=== PATIENT | female | born 1995 | race Hispanic/Latino ===

== ENCOUNTER 2023-10-05 21:45 | Emergency (ER) | payer SELFPAY ==
[2023-10-05] MEDS ORDERED: Acetaminophen 500 MG TAB ONE (22:11)
== END 2023-10-05 22:17 | disposition home or self-care (01) ==
LOC: CSHERS 21:45
DX: K02.9 Dental caries, unspecified (principal)
CPT/HCPCS: 99282

== ENCOUNTER 2025-03-12 18:00 | Inpatient (IN) | payer OTHER ==
[2025-03-12 18:33] VITALS: BMI 35.5
[2025-03-12] MEDS ORDERED: Tranexamic Acid 1,000 MG/10 ML VIAL IVP PRN (19:30)
[2025-03-12] MEDS ORDERED: Oxytocin 30 units/NS 500 ML 500 ML IV SCH ×3 (19:30)
[2025-03-12] MEDS ORDERED: Carboprost 250 MCG/ML AMP IM PRN (19:30)
[2025-03-12] MEDS ORDERED: Diphenoxylate HCl/Atropine Tablet PO PRN (19:30)
[2025-03-12] MEDS ORDERED: hydrALAZINE 20 MG/ML VIAL SLOW IVP PRN (19:30)
[2025-03-12] MEDS ORDERED: Lidocaine 1% (PF) 30 ML VIAL SC PRN (19:30)
[2025-03-12] MEDS ORDERED: Methylergonovine 0.2 MG/ML VIAL IM PRN (19:30)
[2025-03-12] MEDS ORDERED: Ondansetron PF 4 MG/2 ML Vial IVP PRN (19:30)
[2025-03-12 19:48] LABS: Hematocrit 32.7 % (34.9-44.5); Hemoglobin 10.7 g/dL (12.0-15.5); Mean Corpuscular Hemoglobin 25.1 pg (27.0-33.0); Mean Corpuscular Volume 76.8 fL (81.6-98.3); Platelet Count 363 10x3/uL (150-450); Red Blood Cell (RBC) Count 4.26 10x6/uL (3.90-5.03); White Blood Cell (WBC) Count 11.10 10x3/uL (3.5-10.5)
[2025-03-12] MEDS ORDERED: Dextrose 50% Abboject 50 ML SYRINGE SLOW IVP PRN (20:08)
[2025-03-12] MEDS ORDERED: Glucagon 1 MG/ML KIT IM PRN (20:08)
[2025-03-12 22:56] LABS: Syphilis Antibody Index 0.04 S/CO (<1.00 Non-Reactive)
[2025-03-12 22:57] LABS: Hep B Surf Ag - L&D Non-Reactive S/CO (NonReactive)
[2025-03-13] MEDS: fentaNYL/Ropivacaine Epidural 100 ML ONE (10:06)
[2025-03-13] MEDS ORDERED: diphenhydrAMINE 50 MG/ML VIAL IVP PRN ×2 (10:09→10:17)
[2025-03-13] MEDS ORDERED: Acetaminophen 325 MG TAB PO PRN (10:09)
[2025-03-13] MEDS ORDERED: Ondansetron PF 4 MG/2 ML Vial IVP PRN ×2 (10:09→10:17)
[2025-03-13] MEDS ORDERED: Communication Order-Pharmacy FS SCH ×2 (10:15→10:30)
[2025-03-13] MEDS ORDERED: fentaNYL 2 mcg/Ropivacaine 0.2% Epidural 100 ML CADD EPIDURAL SCH ×2 (10:15→10:30)
[2025-03-13] MEDS: Acetaminophen 325 MG TAB PO PRN (19:30)
[2025-03-13] MEDS ORDERED: Lanolin Ointment 7 GM TUBE TOP PRN ×2 (19:43→20:24)
[2025-03-13] MEDS: Ibuprofen 800 MG TAB PO PRN (20:05)
[2025-03-13] MEDS ORDERED: diphenhydrAMINE 25 MG CAP PO PRN (20:24)
[2025-03-13] MEDS ORDERED: Bisacodyl 10 MG SUPP PR PRN (20:24)
[2025-03-13] MEDS ORDERED: hydrALAZINE 20 MG/ML VIAL SLOW IVP PRN (20:24)
[2025-03-13] MEDS ORDERED: Preparation H Ointment 28 GM TUBE PR PRN (20:24)
[2025-03-13] MEDS ORDERED: Milk Of Magnesia 30 ML UDCUP PO PRN (20:24)
[2025-03-13] MEDS ORDERED: Benzocaine-Menthol 82.5 ML CAN TOP PRN (20:24)
[2025-03-14] MEDS: Ibuprofen 800 MG TAB PO SCH (04:19)
[2025-03-14] MEDS ORDERED: Ferrous Sulfate 325 MG TAB PO SCH (08:00)
[2025-03-14] MEDS: Ferrous Sulfate 325 MG TAB PO SCH (08:00)
[2025-03-14 15:48] VITALS: BP 126/66; TEMP 98.4
== END 2025-03-14 19:00 | disposition home or self-care (01) | DRG 806 ==
LOC: CSHLD 18:04 → CSHPP 03-13 20:35
PROVIDERS: ADMIT Obstetrics & Gynecology; ATTEND Obstetrics & Gynecology
PROC: 10E0XZZ Delivery of Products of Conception, External Approach (ICD-10-PCS; principal; 2025-03-13)
PROC: 4A1HXCZ Monitoring of Products of Conception, Cardiac Rate, External Approach (ICD-10-PCS; 2025-03-13)
PROC: 10H07YZ Insertion of Other Device into Products of Conception, Via Natural or Artificial Opening (ICD-10-PCS; 2025-03-13)
DX: O24.425 Gestational diabetes mellitus in childbirth, controlled by oral hypoglycemic drugs (principal); O26.643 Intrahepatic cholestasis of pregnancy, third trimester; Z37.0 Single live birth; O99.214 Obesity complicating childbirth; O71.82 Other specified trauma to perineum and vulva; Z3A.37 37 weeks gestation of pregnancy; Z79.899 Other long term (current) drug therapy; Z79.84 Long term (current) use of oral hypoglycemic drugs
CPT/HCPCS: 36416; 51702; 76816; 85027; 86780; 86850; 86900; 86901; 87340; J1815